=== PATIENT | female | born 1935 | race Caucasian/White ===

== ENCOUNTER 2017-06-10 21:11 | Emergency (ER) | payer OTHER ==
[2017-06-10 21:26] VITALS: TEMP 97.7
--- NOTE | 2017-06-10 22:04 | EDPHY ---
H & P Stated Complaint: fall x 3 after ETOH this evening Time Seen by Provider: 06/10/17 21:35 HPI/ROS: CHIEF COMPLAINT: Multiple falls HISTORY OF PRESENT ILLNESS: The patient is a 81 y/o female with a history of hypertension arriving via EMS complaining of falling several times tonight. She states that she drank a glass of wine at dinner and then drank some vodka when she returned to her room; however she does this most nights. The second time she fell, she called for help as she was unable to stand up. She is unsure why she fell today, but believes it could be because she was rushing to the bathroom; she normally has some urinary incontinence. After three falls, her detention called EMS. She uses a walker when not in her room. Denies injuring herself recently. Denies injuring herself with the falls. REVIEW OF SYSTEMS: A 10 point review of systems was performed and is negative with the exception of the elements mentioned in the history of present illness. Past medical history: 1. Hypertension 2. Anxiety 3. GERD Past surgical history: 1. Total hysterectomy Family history: Denies Social history: Lives at [facility], retired, nonsmoker, drinks alcohol daily. . General Appearance: Alert, no acute distress. BP 150/81. Head: Normocephalic, atraumatic. Eyes: Pupils equal and round, no conjunctival injection, no discharge. ENT, Mouth: Mucous membranes are moist, no oropharyngeal erythema or edema. Neck: No lymphadenopathy, supple. Respiratory: Lungs are clear to auscultation; no wheezes, rales, or rhonchi. Cardiovascular: Regular rate and rhythm; no murmur, rub, or gallop. Gastrointestinal: Abdomen is soft and non tender, no masses or organomegaly, bowel sounds normal. Skin: Warm and dry, no rashes, normal color. Back: Nontender to palpation over the thoracolumbar spine. Extremities: Mild bilateral abrasions on knees. FAROM both knees. No lower extremity edema, no calf tenderness or swelling. Neurological: Alert and oriented. Moving all four extremities easily and equally. Cranial nerves II through XII are examined and are intact (visual acuity not tested). Strength is 5 over 5 bilaterally with testing of all major motor groups. Sensation is intact to light touch over all 4 extremities. Deep tendon reflexes are 2+ in the biceps and knees bilaterally. Walks with one assist in ED. [id number] is performed accurately. No cerebellar ataxia. Psychiatric: Normal affect. - Personal History Current Tetanus/Diphtheria Vaccine: Yes Current Tetanus Diphtheria and Acellular Pertussis (TDAP): Yes - Medical/Surgical History Hx Asthma: No Hx Chronic Respiratory Disease: No Hx Diabetes: No Hx Cardiac Disease: No Hx Renal Disease: No Hx Cirrhosis: No Hx Alcoholism: No Hx HIV/AIDS: No Hx Splenectomy or Spleen Trauma: No Other PMH: HTN/ total hysterectomy - Social History Smoking Status: Never smoked Constitutional: Initial Vital Signs Temperature (C) 36.5 C 06/10/17 21:22 Heart Rate 75 06/10/17 21:22 Respiratory Rate 18 06/10/17 21:22 Blood Pressure 150/81 H 06/10/17 21:22 O2 Sat (%) 95 06/10/17 21:22 O2 Delivery Mode Room Air Allergies/Adverse Reactions: zolpidem tartrate [From Ambien] Allergy (Verified 06/29/15 15:04) Home Medications: Medication Instructions Recorded Aspirin [Aspirin 81mg (*)] 81 mg PO DAILY 06/29/15 Diltiazem Cd [Cardizem ER Q24hr] 180 mg PO DAILY 06/29/15 LORazepam [Ativan (*)] 0.5 mg PO DAILY@0200 PRN 06/29/15 LORazepam [Ativan (*)] 0.5 mg PO HS 06/29/15 Lisinopril [Zestril 10 mg (*)] 10 mg PO DAILY 06/29/15 Multivitamins [Multivitamin (*)] 1 each PO DAILY 06/29/15 Ranitidine HCl [Zantac] 300 mg PO DAILY@18 06/29/15 Azithromycin [Zithromax] 250 mg PO ONCE 03/10/16 Herbals/Supplements -Info Only 1 ea PO DAILY 03/10/16 Mirtazapine [Remeron soltab 15 mg 7.5 mg PO HS 03/10/16 (*)] methylPREDNISolone [Medrol 4mg (*)] 4 mg PO ONCE 03/10/16 methylPREDNISolone [Medrol 4mg (*)] 8 mg PO ONCE 03/10/16 Phenylephrine/Shk Lv/Mo/Pet,Wh 1 dose RC BID #0 tube 03/11/16 [Hemorrhoidal Ointment] Medical Decision Making ED Course/Re-evaluation: The patient is a 81 y/o female with a history of hypertension arriving via EMS, after falling three times tonight.She did drink a glass of wine and vodka tonight; although this is not unusual. Her neuro exam is normal. She did not strike her head, is not on anticoagulation, and I do not think that brain imaging is needed to assess for acute injury.. The only evidence of injury is knee abrasions. I do not suspect CVA, TIA. 2245: Patient's blood alcohol level is 319. I think that she fell because of intoxication and her baseline gait difficulty. I recommend that she use her walker at all times. We had a lengthy discussion about her drinking, which she plans to continue. Patient will be discharged home. 2247: Reassessed patient and discussed laboratory findings. Return precautions provided; patient is comfortable with this plan. - Data Points Laboratory Results: Laboratory Results 06/10/17 22:00 06/10/17 22:00 Departure - Departure Disposition: Home, Routine, Self-Care Clinical Impression: Multiple falls Alcoholic intoxication Qualifiers: Complication of substance-induced condition: uncomplicated Qualified Code(s): F10.920 - Alcohol use, unspecified with intoxication, uncomplicated Condition: Good Instructions: Fall Prevention for Older Adults (ED), Alcohol Intoxication (ED) Additional Instructions: Return to the emergency department immediately for vomiting, confusion, headache , or any concerning symptoms. Referrals: Gill Campbell MD [Primary Care Provider] - As per Instructions Report Scribed for: Carisa Sandoval Report Scribed by: Cassie Fonseca Date of Report: 06/10/17 Time of Report: 22:02 Physician Review and Approval Statement: 06/10/17 22:02 Portions of this note were transcribed by the lead medical technologist. I, Dr. Carisa Sandoval, personally performed the history, physical exam, and medical decision- making; and confirmed the accuracy of the information in the transcribed note.
[2017-06-10 22:16] LABS: PLATELET COUNT 220 10^3/uL (150-400)
[2017-06-11 00:05] VITALS: BP 184/86; PULSE 74; RESP 16; O2SAT 93
== END 2017-06-11 00:33 | disposition home or self-care (01) ==
LOC: EDUNIT#
DX: F10.920 Alcohol use, unspecified with intoxication, uncomplicated (principal); R26.9 Unspecified abnormalities of gait and mobility; I10 Essential (primary) hypertension; Z79.82 Long term (current) use of aspirin
CPT/HCPCS: G0480

== ENCOUNTER 2017-09-17 07:17 | Emergency (ER) | payer OTHER ==
--- NOTE | 2017-09-17 08:00 | EDPHY ---
H & P Time Seen by Provider: 09/17/17 07:20 HPI/ROS: Chief complaint. Scalp laceration HPI. 9-year-old female here by EMS after sustaining laceration to her scalp this morning. She was cold in her apartment and got up to turn up the thermostat. Somehow she grabbed a heavy breast lamp which fell over and struck her in the head. She did not lose consciousness. She is not on blood thinners. She has no neck pain, other back pain, chest pain, abdominal pain, injury to arms legs. she did sustain scalp laceration. No headache ROS Constitutional. no fever/chills, no weakness Eyes. no problems with vision ENT. no sore throat, no nasal drainage Cardiovascular. no chest pain Respiratory. no shortness of breath, no cough Abdominal. no abdominal pain, no nausea/vomiting, no diarrhea . no problems urinating MS. no calf pain/swelling, no neck/back pain, no joint pain Skin. Scalp laceration Lymph. no swollen glands Neuro. no headache, no dizziness, no difficulty walking or with speech Past Medical/Surgical History: Hypertension, GERD, hysterectomy Social History: , nonsmoker, no alcohol Smoking Status: Never smoked Physical Exam: General Appearance: Alert pleasant female mild distress vital signs stable Eyes: Pupils equal and round no pallor or injection. ENT, Mouth: Mucous membranes are moist. Respiratory: There are no retractions, lungs are clear to auscultation. Cardiovascular: Regular rate and rhythm. Gastrointestinal: Abdomen is soft and nontender, no masses, bowel sounds normal. Neurological: Awake and alert, sensory and motor exams grossly normal. Skin: 2 cm laceration to the occipital scalp Musculoskeletal: Neck is supple nontender. Extremities symmetrical, full range of motion. Psychiatric: Patient is oriented X 3, there is no agitation. Constitutional: Initial Vital Signs Temperature (C) 36.4 C 09/17/17 07:21 Heart Rate 65 09/17/17 07:21 Respiratory Rate 18 09/17/17 07:21 Blood Pressure 149/76 H 09/17/17 07:21 O2 Sat (%) 91 L 09/17/17 07:21 O2 Delivery Mode Room Air Allergies/Adverse Reactions: zolpidem tartrate [From Ambien] Allergy (Verified 06/29/15 15:04) Home Medications: Medication Instructions Recorded Aspirin [Aspirin 81mg (*)] 81 mg PO DAILY 06/29/15 Diltiazem Cd [Cardizem ER Q24hr] 180 mg PO DAILY 06/29/15 LORazepam [Ativan (*)] 0.5 mg PO DAILY@0200 PRN 06/29/15 LORazepam [Ativan (*)] 0.5 mg PO HS 06/29/15 Lisinopril [Zestril 10 mg (*)] 10 mg PO DAILY 06/29/15 Multivitamins [Multivitamin (*)] 1 each PO DAILY 06/29/15 Ranitidine HCl [Zantac] 300 mg PO DAILY@18 06/29/15 Azithromycin [Zithromax] 250 mg PO ONCE 03/10/16 Herbals/Supplements -Info Only 1 ea PO DAILY 03/10/16 Mirtazapine [Remeron soltab 15 mg 7.5 mg PO HS 03/10/16 (*)] methylPREDNISolone [Medrol 4mg (*)] 4 mg PO ONCE 03/10/16 methylPREDNISolone [Medrol 4mg (*)] 8 mg PO ONCE 03/10/16 Phenylephrine/Shk Lv/Mo/Pet,Wh 1 dose RC BID #0 tube 03/11/16 [Hemorrhoidal Ointment] Medical Decision Making Procedures: Procedure: Laceration repair. Verbal consent was obtained from the patient. The 2 cm laceration on the scalp was anesthetized in the usual fashion. The wound was irrigated, draped and explored to its base with a gloved finger. There were no deep structures involved. No tendon injury was identified. The wound was repaired with three 5 -0 sutures. The wound repair was simple. The procedure was performed by myself. ED Course/Re-evaluation: On serial evaluations patient remains alert. She is neurologically intact. The patient and I discussed treatment plan including criteria for return and importance of follow-up and further evaluation. She expresses understanding and agreement Differential Diagnosis: I considered retained foreign body, skull fracture, intracranial bleeding Departure - Departure Disposition: Home, Routine, Self-Care Clinical Impression: Occipital scalp laceration Qualifiers: Encounter type: initial encounter Qualified Code(s): S01.01XA - Laceration without foreign body of scalp, initial encounter Condition: Good Instructions: Care For Your Stitches (ED) Additional Instructions: Ice to sore area of head today. May use Tylenol for headache. You may wash your hair with your stitches in. Return for signs of infection. Stitches out 1 week Referrals: Gill Campbell MD [Primary Care Provider] - As per Instructions
[2017-09-17 09:20] VITALS: BP 126/73
== END 2017-09-17 09:18 | disposition home or self-care (01) ==
LOC: EDUNIT#
PROC: 0HQ0XZZ Repair Scalp Skin, External Approach (ICD-10-PCS; principal; 2017-09-17)
DX: S01.01XA Laceration without foreign body of scalp, initial encounter (principal); I10 Essential (primary) hypertension; Z79.82 Long term (current) use of aspirin; W01.198A Fall on same level from slipping, tripping and stumbling with subsequent striking against other object, initial encounter; Y92.039 Unspecified place in apartment as the place of occurrence of the external cause; Y99.8 Other external cause status; Y93.89 Activity, other specified

== ENCOUNTER 2018-06-23 12:50 | Inpatient (IN) | payer OTHER ==
[2018-06-23] MEDS ORDERED: DILTIAZEM 25 MG/5 ML VIAL IVP ONE ×2 (13:23→13:24)
[2018-06-23] MEDS ORDERED: NS 500 ML IV ONE ×2 (13:26→13:47)
[2018-06-23] MEDS ORDERED: LORazepam 2 MG/ML INJ IVP ONE ×2 (13:26→13:46)
[2018-06-23 13:33] LABS: PLATELET COUNT 259 10^3/uL (150-400)
[2018-06-23] MEDS ORDERED: LORazepam 2 MG/ML INJ ONE (13:47)
--- NOTE | 2018-06-23 15:00 | EDPHY ---
H & P Stated Complaint: FALL LAST NIGHT, ON FLOOR FOR HRS AFTER FALL Time Seen by Provider: 06/23/18 12:58 HPI/ROS: CHIEF COMPLAINT: [ ] HISTORY OF PRESENT ILLNESS: [ ] [No fever, chills, chest pain, shortness of breath, palpitations, vomiting, diarrhea, urinary complaints, headache, lightheadedness. ] REVIEW OF SYSTEMS: A comprehensive 10 system review of systems was reviewed and is otherwise negative aside from elements mentioned in the history of present illness and medical decision making. PAST MEDICAL HISTORY: [ ] SOCIAL HISTORY: [ ] VITAL SIGNS Reviewed by me. GENERAL: Well-developed, well-nourished, [resting comfortably in no respiratory distress]. HEENT: [Atraumatic]. [Eyes: No icterus, no injection.] [Mouth: moist mucous membranes. No erythema or lesions.] [Neck: supple with no adenopathy.] LUNGS: [Clear to auscultation bilaterally, no wheezes, rhonchi or rales.] CARDIAC: [Regular rate and rhythm, no rubs, murmurs or gallops.] ABDOMEN: [Soft, nontender, nondistended, bowel sounds normal.] BACK: [No CVA tenderness.] EXTREMITIES: [No trauma.] [No edema. Range of motion is normal throughout]. NEURO: [Alert and oriented, grossly nonfocal]. SKIN: [Warm and dry, no rash]. PSYCHIATRIC: [Normal mentation, no agitation.] - Personal History Current Tetanus Diphtheria and Acellular Pertussis (TDAP): Yes - Medical/Surgical History Hx Asthma: No Hx Chronic Respiratory Disease: No Hx Diabetes: No Hx Cardiac Disease: No Hx Renal Disease: No Hx Cirrhosis: No Hx Alcoholism: No Hx HIV/AIDS: No Hx Splenectomy or Spleen Trauma: No Other PMH: ETOH, GERD, HTN/ total hysterectomy - Social History Smoking Status: Never smoked Constitutional: Initial Vital Signs Temperature (C) 36.9 C 06/23/18 12:57 Heart Rate 118 H 06/23/18 12:57 Respiratory Rate 20 06/23/18 12:57 Blood Pressure 235/161 H 06/23/18 12:57 O2 Sat (%) 90 L 06/23/18 12:57 O2 Delivery Mode Room Air Allergies/Adverse Reactions: zolpidem tartrate [From Ambien] Allergy (Verified 06/23/18 12:57) Home Medications: Medication Instructions Recorded Aspirin [Aspirin 81mg (*)] 81 mg PO DAILY 06/29/15 Diltiazem Cd [Cardizem ER Q24hr] 180 mg PO DAILY 06/29/15 LORazepam [Ativan (*)] 0.5 mg PO DAILY@0200 PRN 06/29/15 LORazepam [Ativan (*)] 0.5 mg PO HS 06/29/15 Lisinopril [Zestril 10 mg (*)] 10 mg PO DAILY 06/29/15 Multivitamins [Multivitamin (*)] 1 each PO DAILY 06/29/15 Ranitidine HCl [Zantac] 300 mg PO DAILY@18 06/29/15 Azithromycin [Zithromax] 250 mg PO ONCE 03/10/16 Herbals/Supplements -Info Only 1 ea PO DAILY 03/10/16 Mirtazapine [Remeron soltab 15 mg 7.5 mg PO HS 03/10/16 (*)] methylPREDNISolone [Medrol 4mg (*)] 4 mg PO ONCE 03/10/16 methylPREDNISolone [Medrol 4mg (*)] 8 mg PO ONCE 03/10/16 Phenyleph/Shark Eri.oil/Mo/Pet 1 dose RC BID #0 tube 03/11/16 [Hemorrhoidal Ointment] Medical Decision Making - Diagnostics Imaging Results: Imaging Impressions Cervical Spine CT 06/23/18 13:26 Impression: 1. Extensive multilevel cervical degenerative disk disease, without acute fracture identified. Results called to Dr. Jossy Cueva at 2:[address] 06/23/18 13:26 Impression: Negative noncontrast CT of the brain. Results called to Dr. Jossy Cueva at 2:50 PM at the time of the interpretation. - Data Points Laboratory Results: Laboratory Results 06/23/18 13:13 06/23/18 13:13 06/23/18 06/23/18 06/23/18 13:18 13:13 13:13 WBC RBC Hgb Hct MCV MCH MCHC RDW Plt Count MPV Neut % (Auto) Lymph % (Auto) [place] % (Auto) Eos % (Auto) Baso % (Auto) Nucleat RBC Rel Count Absolute Neuts (auto) Absolute Lymphs (auto) Absolute Monos (auto) Absolute Eos (auto) Absolute Basos (auto) Absolute Nucleated RBC Immature Gran % Immature Gran # Platelet Estimate Sodium 144 mEq/L mEq/L (135-145) Potassium 4.0 mEq/L mEq/L (3.5-5.2) Chloride 107 mEq/L mEq/L (97-110) Carbon Dioxide 15 mEq/l L mEq/l (22-31) Anion Gap 22 mEq/L H mEq/L (6-14) BUN 12 mg/dL mg/dL (7-23) Creatinine 0.6 mg/dL mg/dL (0.6-1.0) Estimated GFR > 60 Glucose 165 mg/dL H mg/dL (70-100) Calcium 9.2 mg/dL mg/dL (8.5-10.4) POC Troponin I 0.03 ng/mL ng/mL (0.00-0.08) Troponin I 0.039 ng/mL H ng/mL (0.000-0.034) Ethyl Alcohol 61 mg/dL H mg/dL (0-10) 06/23/18 13:13 WBC 9.76 10^3/uL H 10^3/uL (3.80-9.50) RBC 4.37 10^6/uL 10^6/uL (4.18-5.33) Hgb 16.0 g/dL g/dL (12.6-16.3) Hct 47.5 % H % (38.0-47.0) MCV 108.7 fL H fL (81.5-99.8) MCH 36.6 pg H pg (27.9-34.1) MCHC 33.7 g/dL g/dL (32.4-36.7) RDW 14.4 % % (11.5-15.2) Plt Count 259 10^3/uL 10^3/uL (150-400) MPV 9.1 fL fL (8.7-11.7) Neut % (Auto) 88.6 % H % (39.3-74.2) Lymph % (Auto) 5.8 % L % (15.0-45.0) [place] % (Auto) 4.8 % % (4.5-13.0) Eos % (Auto) 0.0 % L % (0.6-7.6) Baso % (Auto) 0.6 % % (0.3-1.7) Nucleat RBC Rel Count 0.0 % % (0.0-0.2) Absolute Neuts (auto) 8.64 10^3/uL H 10^3/uL (1.70-6.50) Absolute Lymphs (auto) 0.57 10^3/uL L 10^3/uL (1.00-3.00) Absolute Monos (auto) 0.47 10^3/uL 10^3/uL (0.30-0.80) Absolute Eos (auto) 0.00 10^3/uL L 10^3/uL (0.03-0.40) Absolute Basos (auto) 0.06 10^3/uL 10^3/uL (0.02-0.10) Absolute Nucleated RBC 0.00 10^3/uL 10^3/uL (0-0.01) Immature Gran % 0.2 % % (0.0-1.1) Immature Gran # 0.02 10^3/uL 10^3/uL (0.00-0.10) Platelet Estimate Not Reported Sodium Potassium Chloride Carbon Dioxide Anion Gap BUN Creatinine Estimated GFR Glucose Calcium POC Troponin I Troponin I Ethyl Alcohol Medications Given: Hydralazine HCl (Apresoline) 10 mg IVP Q6 PRN PRN Reason: SBP>160 Stop: 12/20/18 15:52 Last Admin: 06/23/18 17:08 Dose: 10 mg Lorazepam (Ativan Injection) 0 mg IVP Q1H PRN; Protocol PRN Reason: Alcohol Withdrawal w/IV access Stop: 12/20/18 15:50 Last Admin: 06/23/18 16:31 Dose: 2 mg Discontinued Medications Diltiazem HCl (Cardizem 25 Mg/5 Ml Vial) 10 mg IVP EDNOW ONE Stop: 06/23/18 13:24 Last Admin: 06/23/18 13:26 Dose: 10 mg Sodium Chloride (Ns) 500 mls @ 1,000 mls/hr IV EDNOW ONE PRN Reason: Protocol Stop: 06/23/18 13:55 Last Admin: 06/23/18 13:32 Dose: 500 mls Sodium Chloride (Ns) 500 mls @ 1,000 mls/hr IV EDNOW ONE PRN Reason: Protocol Stop: 06/23/18 14:16 Last Admin: 06/23/18 14:38 Dose: 500 mls Lorazepam (Ativan Injection) 1 mg IVP EDNOW ONE Stop: 06/23/18 13:27 Last Admin: 06/23/18 13:32 Dose: 1 mg Lorazepam (Ativan Injection) 1 mg IVP EDNOW ONE Stop: 06/23/18 13:47 Last Admin: 06/23/18 13:51 Dose: 1 mg Point of Care Test Results: Chemistry 06/23/18 13:18 POC Troponin I 0.03 ng/mL ng/mL (0.00-0.08) Departure - Departure Disposition: [facility] Acute Condition: Fair
[2018-06-23] MEDS ORDERED: FLUMAZENIL 0.5 MG/5 ML MDV IVP PRN (15:51)
--- NOTE | 2018-06-23 15:58 | CPEKG ---
Test Reason : OPEN Blood Pressure : / mmHG Vent. Rate : 108 BPM Atrial Rate : 109 BPM P-R Int : 137 ms QRS Dur : 091 ms QT Int : 352 ms P-R-T Axes : 048 023 040 degrees QTc Int : 472 ms Sinus tachycardia Probable left atrial enlargement Borderline ST depression, lateral leads Confirmed by Jossy Cueva ([id number]) on 06/23/2018 3:58:29 PM Referred By: Confirmed By:Jossy Cueva
--- NOTE | 2018-06-23 15:59 | CPEKG ---
Test Reason : OPEN Blood Pressure : / mmHG Vent. Rate : 089 BPM Atrial Rate : 090 BPM P-R Int : 151 ms QRS Dur : 089 ms QT Int : 411 ms P-R-T Axes : 053 015 029 degrees QTc Int : 501 ms Sinus rhythm Probable left atrial enlargement Prolonged QT interval Confirmed by Jossy Cueva ([id number]) on 06/23/2018 3:58:40 PM Referred By: Confirmed By:Jossy Cueva
[2018-06-23] MEDS: LORazepam 2 MG/ML INJ IVP PRN ×2 (16:31→22:24)
--- NOTE | 2018-06-23 16:56 | GHP ---
DATE OF ADMISSION: 06/23/2018 CHIEF COMPLAINT: Status post fall. HISTORY: The patient is an 82-year-old female, who reportedly fell last night and was on the floor a ll night long into this morning. She now presents to the hospital confused and a poor historian. Sh syliva states she got up in the middle of the night to go to the bathroom. She was half asleep. She used her walker there was something slippery on the floor. She told the nurse that her caregiver forgot to put on the night light before she left. She denies any dizziness or syncope. She is, however, qu ite confused and disoriented so unreliable historian. She cannot tell me the date. She knows she is in some type of medical facility but keeps asking very strange questions about how she is going to g et up stairs, telling me repeatedly that she cannot crawl up stairs and then asked for a motorized ve hicle. On presentation to the emergency room. Her blood pressure is 235/116 and she is extremely tremulous. She tells us she had 1 glass of wine last night, but her alcohol level at 1 o'clock this afternoon was still 61. She is very tremulous and clinically appears to be in probable alcohol withdrawal. PAST MEDICAL HISTORY: 1. Hypertension. 2. GERD. 3. Upper GI bleed secondary to erosions. PAST SURGICAL HISTORY: Hysterectomy. MEDICATIONS: Please see computer record for full details. ALLERGIES: Zolpidem. SOCIAL HISTORY: No smoking. She consistently admits to only 1 glass of wine per day. Reviewing her old medical chart, that is what she had said on those admissions as well. She does tell me she will drink vodka on the [employer] for special occasions. She lives independently at the and tells me "I have a girl." It is not to what degree this person lives with her or is a paid caregiver. REVIEW OF SYSTEMS: Complete review of systems obtained and review of systems negative regarding cons titutional, HEENT, GI, pulmonary, cardiovascular, , hematology, skin, endocrine, psych, except for positives as in HPI. FAMILY HISTORY: Reviewed, noncontributory to presenting complaint physical. EXAMINATION: GENERAL: Well developed, well nourished female, in no acute distress. VITAL SIGNS: T emperature is 36.9, pulse 118, blood pressure 235/161, saturating 93% on room air. EYES: Normal con junctivae. Pupils react light. ENT: Normal ears, nose. Hearing intact. Normal teeth. Oropharynx dry. NECK: Trachea midline. No thyromegaly. CHEST: Normal respiratory effort. Lungs are clear to auscultation bilaterally. CARDIOVASCULAR: Tachycardic. No murmur. No lower extremity edema. A BDOMEN: Soft, nontender. No hepatosplenomegaly. SKIN: Warm, dry, intact without rash. MUSCULOSKE LETAL: She has a significant tremor. She is mildly agitated. She is confused. She is moving all e xtremities equally. Strength 5/5 bilaterally. No cyanosis or clubbing. NEURO: Cranial nerves inta ct. Normal sensation to light touch. PSYCH ASSESSMENT: She is alert, oriented x1. She has poor sherri gment and insight. Poor memory. Mildly agitated, confused, although she is pleasant and cooperative . LABORATORY/DIAGNOSTIC DATA: White count 9.76, hematocrit 47.5, platelets 259, sodium 144, potassium 4.0, chloride 107, bicarb 15, BUN 12, creatinine 0.6, glucose 165, troponin is 0.038. Alcohol level was 61 at 1 p.m. EKG viewed by me and my personal interpretation is normal sinus rhythm with prolong ed QT. Head CT is negative. 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 ASSESSMENT/PLAN: 1. Toxic metabolic encephalopathy. She is very confused at this time. I suspect this is either due to alcohol intoxication versus alcohol withdrawal. 2. Alcohol withdrawal. She reports only 1 glass of wine per night, although alcohol level is 61 at 1 o'clock the next day, showing significant heavier alcohol use than she is admitting to. We will pr escribe IV Ativan per [facility]WA protocol and IV thiamine. 3. Hypertensive urgency. Blood pressure 235/161 on presentation. This is probably due to a combina tion of alcohol withdrawal and missed antihypertensive medications. We will reconcile her oral medic ations when available. We will provide IV hydralazine and IV metoprolol for blood pressure control i n the short term. 4. Borderline troponin. I doubt has had an ischemic event and this is likely due to her prolonged d own time and hypoperfusion. We will follow troponins serially. COR STATUS: Full as she does not currently have decisional capacity to decide anything otherwise at this time. ADMISSION STATUS: We will admit to inpatient as she is quite sick on presentation very toxic appeari ng, I think it is highly unlikely she would be able to return, that she will stabilize by tomorrow. DVT PROPHYLAXIS: She is high risk. We placed her on subcu Lovenox. /[id number]/MODL
[2018-06-23] MEDS: hydrALAZINE 20 MG/ML VIAL IVP PRN (17:08)
[2018-06-24 05:11] LABS: PLATELET COUNT 162 10^3/uL (150-400)
[2018-06-24 05:14] LABS: INR 1.13 (0.83-1.16); PROTIME(PATIENT) 14.7 SEC (12.0-15.0)
[2018-06-24 05:21] LABS: CREATINE KINASE 1390 IU/L (0-156)
--- NOTE | 2018-06-24 09:39 | PDMN ---
Medical Necessity Medical necessity: Pt meets IP criteria as of 06/23/18 per and [facility] M-595 ( substance-related disorders); est los > 2 mn for ongoing tx and management of alcohol withdrawal in an elderly pt with hypertension, tachycardia, and toxic metabolic encephalopathy.
[2018-06-24] MEDS: ENOXAPARIN 40 MG/0.4 ML SYR SC SCH (11:50)
--- NOTE | 2018-06-24 11:51 | ASMTCASEMG ---
Living Arrangements What is your living Answers: Alone arrangement? Who do you live with? Type Of Residence What kind of residence do Answers: Apartment you live in? Discharge Plan Comments Coordination Status Comments Notes: Patient is an 82yo female who fell and was on the floor all night long until this morning. Patient has been admitted for toxic metabolic encephalopathy, ETOH withdrawal, hypertensive urgency, and borderline troponin. OT/PT evals have been ordered. D/C plan TBD. Patient has a daughter in [place], Ciera Cohen who is her MDPOA. CM will follow. Date Signed: 06/24/2018 11:50 AM Electronically Signed By:Carlyn Cunningham LCSW
[2018-06-24] MEDS ORDERED: PNEUMOC 13-VAL CONJ-DIP CRM/PF 0.5 ML SYR (PREVNAR 13) IM ONE (12:21)
[2018-06-24] MEDS ORDERED: DILTIAZEM CD 180 MG CAP PO SCH ×2 (12:30→17:11)
--- NOTE | 2018-06-24 12:51 | HOSPPROG ---
Hospitalist Progress Note Assessment/Plan: 1. Toxic Metabolic Encephalopathy - Was confused at time of admission - Likely in setting of Alcohol intoxication, ETOH level 61 on admisison - Improved this morning back to baseline 2. Mechanical Fall - Fell last night, no night light per patient, ETOH also playing role - PT/OT ordered - Head/Neck CT on admission without acute abnormalities 3. Elevated Troponin - Trop increased overnight 0.039, 0.072, 0.071 this AM - Likely in setting of prolonged down time - Patient denies any chest pain/tightness at this time - Will order TTE to further evaluate, if WMA will proceed with Lexiscan to further evaluate - Continue daily ASA 4. Alcohol Withdrawal - Reports 1 glass of wine/night, ETOH 61 at 1PM, likely heaver use then admitting to - CIWA ordered with IV Thiamine - Will switch to Wine per patient, no interest in stopping alcohol use 5. HTN - Continue home Lisinopril FEN: IVF, Regular DVT PPx: Dispo: Pending clinical course, awaiting PT/OT evaluation, cardiac w/u Objective: Vital Signs Temp Pulse Resp BP Pulse Ox 37.0 C 102 H 18 152/85 H 94 06/24/18 12:00 06/24/18 12:00 06/24/18 12:00 06/24/18 12:00 06/24/18 12:00 Laboratory Results 06/24/18 04:50 06/24/18 04:50 06/23/18 06/24/18 06/25/18 05:59 05:59 05:59 Intake Total 1100 Output Total 450 Balance 650 PT 14.7 SEC (12.0-15.0) 06/24/18 04:50 INR 1.13 (0.83-1.16) 06/24/18 04:50 ICD10 Worksheet Patient Problems: Problems Problem Status Onset Alcoholic intoxication Acute Low hemoglobin and low hematocrit Acute Multiple falls Acute Rectal bleeding Acute
--- NOTE | 2018-06-24 13:02 | ECHO ---
[email or web address] [address] [address] Main: [phone] Fax: Transthoracic Echocardiogram Name: MIRELA FRASER MR#: [id number] Study Date: 06/24/2018 Study Time: 10:11 AM Date of : 1935 Age: 82 year(s) Height: 152.4 cm (60 in.) Weight: 66.68 kg (147 lb.) BSA: 1.64 m2 Gender: Female Examination: Echo Indication: Elevated troponin Image Quality: Adequate Contrast: Requested by: Bubba Messer BP: 152 mmHg/88 mmHg Heart Rate: Rhythm: Indication: Elevated troponin Procedure Staff Tank Processor: Alessia Ham RDCS Reading Physician: Black Valadez MD Requesting Provider: Conclusions: Normal size left ventricle. Normal global systolic LV function. EF is 65 %. No regional wall motion abnormality. Mild mitral annular calcification. Mild mitral valve regurgitation is present. Aortic sclerosis is present. Mild tricuspid regurgitation is present. The pulmonary artery pressure is normal. Measurements: Chambers Valvular Assessment AV/MV Valvular Assessment TV/PV Normal Normal Normal Name Value Range Name Value Range Name Value Range Ao Katie (2D): 2.7 cm (1.4 cm-2.6 AV Vmax: 1.62 m/s (1 m/s-1.7 TR Vmax: 2.67 mm/s ( - ) cm) m/s) TR PGmax: 29 mmHg ( - ) IVSd (2D): 1.2 cm (0.6 cm-1.1 AV maxP mmHg ( - ) syst. PAP: 34 mmHg ( - ) cm) AV meanP mmHg ( - ) PV Vmax: 0.98 m/s (0.6 m/s-0.9 LVDd (2D): 3.4 cm (3.9 cm-5.3 ERIK (VTI): 2.0 cm ( - ) m/s) cm) MV E Vmax: 0.83 m/s ( - ) PV PGmax: 4 mmHg ( - ) LVDs (2D): 2.2 cm (2.1 cm-4 MV A Vmax: 1.22 m/s ( - ) cm) MV E/A: 0.68 ( - ) LVPWd (2D): 1.0 cm ( - ) MV PHT: 0.064 s ( - ) LVOTd 1.8 cm 1.8 cm mm MVA (PHT): 3.4 s ( - ) LVEF (BP): 65 % (>=55 %) RVDd(2D): 1.9 cm (1.9 cm-3.8 cmmm) Continued Measurements: Chambers Valvular Assessment AV/MV Valvular Assessment TV/PV Patient: MIRELA FRASER Study Date: 06/24/2018 Page 1 of 2 10:11 AM Name Value Name Value Name Value LADs: 2.8 cm MV DecTime: 239 m/s CVP (est.): 5 mmHg LADs Lon.8 cm MV E' Septal: 0.08 m/s LA Area: 18.4 cm2 MV E/E' Septal: 10.20 LA Volume: 46 ml MV E/E' Lateral: 13.60 LA Volume Index: 28.0 ml/m2 RA Area: 12.5 cm2 Additional Vessels Name Value Ao Ascendin.4 cm Findings: Left Ventricle: Normal size left ventricle. Borderline concentric LV hypertrophy. Normal global systolic LV function. EF is 65 %. No regional wall motion abnormality. Normal diastolic LV function. Right Ventricle: Normal size right ventricle. Normal RV function. Left Atrium: The left atrium is mildly dilated. Right Atrium: The right atrium is normal in size. Mitral Valve: The mitral valve is normal in appearance and function. Mild mitral annular calcification. Mild mitral valve regurgitation is present. No mitral stenosis is present. Aortic Valve: The aortic valve is tri-leaflet. Aortic sclerosis is present. There is no significant aortic valve regurgitation. No aortic valve stenosis is present. Tricuspid Valve: The tricuspid valve is normal in appearance and function. Mild tricuspid regurgitation is present. The pulmonary artery pressure is normal. Right ventricular systolic pressure measures 34mmHg. Pulmonic Valve: Pulmonary valve not well visualized. Aorta: The aorta is normal. Normal size aortic root measuring 2.7 cm. Normal size ascending aorta measuring 3.4 cm. Pericardium: No pericardial effusion. There is pericardial fat. (No Signature Object) Patient: MIRELA FRASER Study Date: 06/24/2018 Page 2 of 2 10:11 AM [id number]
[2018-06-24] MEDS: METOPROLOL TARTRATE 5 MG/5 ML INJ IVP PRN (14:49)
[2018-06-24] MEDS: THIAMINE HCL 500 MG in NS 100 ML IV SCH (17:18)
[2018-06-24] MEDS: FAMOTIDINE 20 MG TAB PO SCH (17:21)
[2018-06-24] MEDS ORDERED: WHITE WINE 120 ML BOTTLE PO SCH (18:00)
[2018-06-24] MEDS: MIRTAZAPINE 15 MG TAB PO SCH (21:04)
[2018-06-24] MEDS ORDERED: oxyCODONE IR 5 MG TAB PO PRN (21:30)
[2018-06-24] MEDS: LORazepam 1 MG TAB PO PRN (21:35)
[2018-06-25] MEDS: hydrALAZINE 20 MG/ML VIAL IVP PRN (03:06)
[2018-06-25] MEDS: ASPIRIN 81 MG CHEWABLE TAB PO SCH (08:39)
[2018-06-25] MEDS: ENOXAPARIN 40 MG/0.4 ML SYR SC SCH (08:39)
[2018-06-25] MEDS: THIAMINE HCL 500 MG in NS 100 ML IV SCH (08:40)
[2018-06-25] MEDS: DILTIAZEM XR 240 MG CAP PO SCH (08:40)
[2018-06-25] MEDS: LISINOPRIL 10 MG TAB PO SCH (08:40)
[2018-06-25] MEDS: METOPROLOL TARTRATE 5 MG/5 ML INJ IVP PRN (10:09)
--- NOTE | 2018-06-25 13:34 | HOSPPROG ---
Hospitalist Progress Note Assessment/Plan: 1. Toxic Metabolic Encephalopathy - Was confused at time of admission - Likely in setting of Alcohol intoxication, ETOH level 61 on admisison - Improved back to baseline 2. Mechanical Fall - No night light per patient, ETOH also playing role - PT/OT ordered- recommending SNF - Head/Neck CT on admission without acute abnormalities 3. Elevated Troponin - Trop increased overnight 0.039, 0.072, 0.071 - Likely in setting of prolonged down time - Patient denies any chest pain/tightness at this time - Prdered TTE to further evaluate, negative for WMA - Will hold off on further cardiac evaluation for now given lack of symptoms - Continue daily ASA 4. Alcohol Withdrawal - Reports 1 glass of wine/night, ETOH 61 at 1PM, likely heaver use then admitting to - CIWA ordered with IV Thiamine 5. HTN - Continue home Lisinopril 6. Paroxysmal A Fib - With HR ranging 90-130's, in setting of alcohol withdrawal - On Diltiazem 180 mg qd at home, increased to 240 mg this AM for better rate control - CHADsVASC >2 given age and sex however given alcohol use and recent fall will hold off on AC for now, continue ASA 81 mg FEN: IVF, Regular DVT PPx: Dispo: Pending clinical course, PT recommending SNF requiring 3 nights, tonight 2nd night Subjective: Patient reports overall weakness Objective: Vital Signs Temp Pulse Resp BP Pulse Ox 36.8 C 73 17 110/71 94 06/25/18 11:15 06/25/18 11:15 06/25/18 11:15 06/25/18 11:15 06/25/18 11:15 Laboratory Results 06/25/18 03:16 06/24/18 04:50 06/24/18 06/25/18 06/26/18 05:59 05:59 05:59 Intake Total 1100 1050 250 Output Total 450 400 Balance 650 650 250 PT 14.7 SEC (12.0-15.0) 06/24/18 04:50 INR 1.13 (0.83-1.16) 06/24/18 04:50 - Physical Exam Constitutional: no apparent distress Eyes: PERRL Ears, Nose, Mouth, Throat: moist mucous membranes Cardiovascular: tachycardia Respiratory: no respiratory distress Gastrointestinal: soft, non-tender abdomen Skin: normal color Musculoskeletal: generalized weakness Neurologic: AAOx3 Psychiatric: interacting appropriately ICD10 Worksheet Patient Problems: Problems Problem Status Onset Alcoholic intoxication Acute Low hemoglobin and low hematocrit Acute Multiple falls Acute Rectal bleeding Acute
--- NOTE | 2018-06-25 15:31 | ASMTCMCOM ---
CM Note CM Note Notes: PT/OT are recommending SNF rehab for the patient. Met with the patient who states she has a stomach ache and cannot participate in a discussion at this time. Met with patient's nurse who states the patient has been confused and unable to process information currently. Contacted patient's MDPOA, Ciera Cohen (daughter) and left her a message to call me back. D/C plan is for SNF rehab if the MDPOA is in agreement and can help with choosing facilities to make referrals to. Awaiting a call from Ciera. CM will follow. Date Signed: 06/25/2018 03:31 PM Electronically Signed By:Carlyn Cunningham LCSW
[2018-06-25] MEDS: FAMOTIDINE 20 MG TAB PO SCH (16:30)
--- NOTE | 2018-06-25 16:43 | ASMTCMCOM ---
CM Note CM Note Notes: Spoke with patient's daughter, Ciera and she is supportive of SNF rehab for her mother. Her concern is , her mother may not want to cooperate if she cannot drink in the program and there is a risk she might try to leave before she has completed the program. Ciera states she has requested tests for cognitive functioning as it is hard to discern if her confusion is from dementia or the drinking.Ciera states her mother's cognitive abilities have declined significantly in the past year. We will make referrals to SNF programs and see what the response is. CM will follow. Date Signed: 06/25/2018 04:42 PM Electronically Signed By:Carlyn Cunningham LCSW
[2018-06-25] MEDS: LORazepam 1 MG TAB PO PRN (21:35)
[2018-06-25] MEDS: MIRTAZAPINE 15 MG TAB PO SCH (21:36)
[2018-06-26 04:45] LABS: CREATINE KINASE 398 IU/L (0-156)
[2018-06-26] MEDS: ENOXAPARIN 40 MG/0.4 ML SYR SC SCH (08:06)
[2018-06-26] MEDS: THIAMINE HCL 500 MG in NS 100 ML IV SCH (08:07)
[2018-06-26] MEDS: DILTIAZEM XR 240 MG CAP PO SCH (08:07)
[2018-06-26] MEDS: LISINOPRIL 10 MG TAB PO SCH (08:07)
[2018-06-26] MEDS: ASPIRIN 81 MG CHEWABLE TAB PO SCH (08:07)
[2018-06-26] MEDS: NS 1,000 ML IV SCH (12:03)
[2018-06-26] MEDS: FAMOTIDINE 20 MG TAB PO SCH (17:24)
[2018-06-26] MEDS: LORazepam 1 MG TAB PO PRN (17:38)
[2018-06-26] MEDS ORDERED: PROTOCOL POTASSIUM 1 DOSE MISC PRN (18:02)
[2018-06-26] MEDS ORDERED: PROTOCOL MAGNESIUM 1 DOSE IV PRN (18:02)
--- NOTE | 2018-06-26 18:06 | HOSPPROG ---
Hospitalist Progress Note Assessment/Plan: 1. Toxic Metabolic Encephalopathy - Was confused at time of admission - Likely in setting of Alcohol intoxication, ETOH level 61 on admisison - Improved back to baseline 2. Mechanical Fall - No night light per patient, ETOH also playing role - PT/OT ordered- recommending SNF - Head/Neck CT on admission without acute abnormalities 3. Elevated Troponin - Trop increased overnight 0.039, 0.072, 0.071 - Likely in setting of prolonged down time - Patient denies any chest pain/tightness at this time - TTE to further evaluate, negative for WMA - Will hold off on further cardiac evaluation for now given lack of symptoms - Continue daily ASA 4. Alcohol Withdrawal - Reports 1 glass of wine/night, ETOH 61 at 1PM, likely heaver use then admitting to - CIWA ordered with IV Thiamine -WILL give daily wine 5. HTN - Continue home Lisinopril 6. Paroxysmal A Fib - With HR ranging 90-130's, in setting of alcohol withdrawal - On Diltiazem 180 mg qd at home, increased to 240 mg this AM for better rate control - CHADsVASC >2 given age and sex however given alcohol use and recent fall will hold off on AC for now, continue ASA 81 mg 7. Hypokalemia, will replace 8. decreased urine output. Looks clinically euvolemic. Will provide gently IV hydration. monitor overnight. FEN: IVF, Regular DVT PPx: Dispo: Pending clinical course, PT recommending SNF requiring 3 nights, tonight 3rd night Subjective: feels ok. no cp or sob. no n/v Objective: Vital Signs Temp Pulse Resp BP Pulse Ox 36.8 C 72 15 155/74 H 92 06/26/18 16:20 06/26/18 16:20 06/26/18 16:20 06/26/18 16:20 06/26/18 16:20 Laboratory Results 06/26/18 04:15 06/26/18 04:15 06/25/18 06/26/18 06/27/18 05:59 05:59 05:59 Intake Total 1050 1270 225 Output Total 400 310 0 Balance 650 960 225 PT 14.7 SEC (12.0-15.0) 06/24/18 04:50 INR 1.13 (0.83-1.16) 01/21/19 04:50 - Physical Exam Constitutional: no apparent distress Eyes: PERRL Ears, Nose, Mouth, Throat: moist mucous membranes, hearing normal Cardiovascular: regular rate and rhythym, No edema Respiratory: no respiratory distress, no rales or rhonchi, clear to auscultation Gastrointestinal: normoactive bowel sounds Skin: warm Neurologic: AAOx3 Psychiatric: interacting appropriately, not anxious Lymph, Heme, Immunologic: No petechiae ICD10 Worksheet Patient Problems: Problems Problem Status Onset Alcoholic intoxication Acute Low hemoglobin and low hematocrit Acute Multiple falls Acute Rectal bleeding Acute
[2018-06-26] MEDS: WHITE WINE 120 ML BOTTLE PO SCH (18:29)
[2018-06-26] MEDS: MIRTAZAPINE 15 MG TAB PO SCH (20:42)
[2018-06-26] MEDS ORDERED: POTASSIUM CL 20 MEQ/15 ML UDCUP TUBE ONE (20:45)
[2018-06-26] MEDS ORDERED: POTASSIUM CL 20 MEQ PKT PO ONE (20:45)
[2018-06-27] MEDS: NS 1,000 ML IV SCH (04:01)
[2018-06-27 04:52] LABS: PLATELET COUNT 144 10^3/uL (150-400)
[2018-06-27] MEDS: hydrALAZINE 20 MG/ML VIAL IVP PRN ×2 (05:37→12:09)
[2018-06-27] MEDS ORDERED: POTASSIUM CL 10 MEQ TAB PO ONE ×2 (07:52→19:18)
[2018-06-27] MEDS ORDERED: MAGNESIUM SULF 1 GM/DEXTROSE 100 ML IV ONE (07:52)
[2018-06-27] MEDS: THIAMINE HCL 100 MG TAB PO SCH (09:32)
[2018-06-27] MEDS: ASPIRIN 81 MG CHEWABLE TAB PO SCH (09:33)
[2018-06-27] MEDS: LISINOPRIL 10 MG TAB PO SCH (09:33)
[2018-06-27] MEDS: DILTIAZEM XR 240 MG CAP PO SCH (09:33)
[2018-06-27] MEDS: ENOXAPARIN 40 MG/0.4 ML SYR SC SCH (09:33)
--- NOTE | 2018-06-27 14:15 | ASMTCMCOM ---
CM Note CM Note Notes: Spoke with patient's daughter, Ciera this morning and she is in agreement with SNF placement for her mother. Spoke with Blank at [facility] and they need a PASRR on the patient. Completed the PASRR on patient and it triggered so it has been faxed to the OBRA coordinator for review. Ciera states she would like for her mother to get sober but understands she may not choose to stop drinking. Ciera does feel the rehab will be more successful if the patient is allowed to have a small amount of ETOH each day. Dr. Norton has agreed to write medical orders for this for the SNF placement. Ciera gave hx regarding her mother's depression. She was hospitalized 8 years ago for 1 month and has stayed on anti depressant medication since. During the psychiatric hospitalization, the patient was also given the dx of personality disorder, though Ciera could not remember exactly which one. ( she thinks Borderline). Ciera states patient is not talking to her other daughter who is local. Patient gets mad frequently with Ciera but she remains her MDPOA and financial POA. Spoke with patient who is willing to go for SNF rehab currently. She understands I am communicating with her MDPOA and daughter to make the arrangements. D/C plan is currently [facility] for SNF rehab when her PASRR is reviewed. CM will follow. Date Signed: 06/27/2018 02:15 PM Electronically Signed By:Carlyn Cunningham LCSW
--- NOTE | 2018-06-27 14:54 | HOSPPROG ---
Hospitalist Progress Note Assessment/Plan: 1. Toxic Metabolic Encephalopathy - Was confused at time of admission - Likely in setting of Alcohol intoxication, ETOH level 61 on admisison - Improved back to baseline which is some confusion present 2. Mechanical Fall - No night light per patient, ETOH also playing role - PT/OT ordered- recommending SNF - Head/Neck CT on admission without acute abnormalities 3. Elevated Troponin - Trop increased overnight 0.039, 0.072, 0.071 - Likely in setting of prolonged down time - Patient denies any chest pain/tightness at this time - TTE to further evaluate, negative for WMA - Will hold off on further cardiac evaluation for now given lack of symptoms - Continue daily ASA 4. Alcohol Withdrawal - Reports 1 glass of wine/night, ETOH 61 at 1PM, likely heaver use then admitting to - CIWA ordered with Thiamine -WILL give daily wine 5. HTN, elevated - increase Lisinopril today to 20mg daily 6. Paroxysmal A Fib - With HR ranging 90-130's, in setting of alcohol withdrawal - On Diltiazem 180 mg qd at home, increased to 240 mg this AM for better rate control - CHADsVASC >2 given age and sex however given alcohol use and recent fall will hold off on AC for now, continue ASA 81 mg 7. Hypokalemia, will replace 8. decreased urine output: resolved. Stop IVF today and monitor off IVF FEN: IVF, Regular DVT PPx: Dispo: cont inpatient. Will need a SNF Subjective: no cp or sob. no n/v. no wd symptoms. bp is elevated. better uop Objective: Vital Signs Temp Pulse Resp BP Pulse Ox 36.9 C 71 16 173/75 H 94 06/27/18 12:03 06/27/18 12:03 06/27/18 12:03 06/27/18 12:03 06/27/18 12:03 Laboratory Results 06/27/18 04:20 06/27/18 03:55 06/26/18 06/27/18 06/28/18 05:59 05:59 05:59 Intake Total 1270 2375 210 Output Total 310 375 Balance 960 2000 210 PT 14.7 SEC (12.0-15.0) 06/24/18 04:50 INR 1.13 (0.83-1.16) 06/24/18 04:50 - Physical Exam Constitutional: no apparent distress Eyes: PERRL, EOMI Ears, Nose, Mouth, Throat: moist mucous membranes, hearing normal Cardiovascular: regular rate and rhythym, No edema Respiratory: no respiratory distress, no rales or rhonchi Gastrointestinal: normoactive bowel sounds, soft, non-tender abdomen Skin: warm Musculoskeletal: generalized weakness Psychiatric: interacting appropriately, not anxious Lymph, Heme, Immunologic: No petechiae ICD10 Worksheet Patient Problems: Problems Problem Status Onset Alcoholic intoxication Acute Low hemoglobin and low hematocrit Acute Multiple falls Acute Rectal bleeding Acute
[2018-06-27] MEDS ORDERED: LISINOPRIL 20 MG TAB PO ONE (15:00)
[2018-06-27] MEDS: FAMOTIDINE 20 MG TAB PO SCH (18:11)
[2018-06-27] MEDS: WHITE WINE 120 ML BOTTLE PO SCH (18:12)
[2018-06-27] MEDS: MIRTAZAPINE 15 MG TAB PO SCH (20:15)
[2018-06-27] MEDS: LORazepam 1 MG TAB PO PRN (20:16)
[2018-06-28] MEDS ORDERED: POTASSIUM CL 10 MEQ TAB PO ONE (07:25)
[2018-06-28] MEDS ORDERED: MAGNESIUM SULF 1 GM/DEXTROSE 100 ML IV ONE (07:26)
[2018-06-28] MEDS: ASPIRIN 81 MG CHEWABLE TAB PO SCH (09:20)
[2018-06-28] MEDS: LISINOPRIL 10 MG TAB PO SCH (09:21)
[2018-06-28] MEDS: THIAMINE HCL 100 MG TAB PO SCH (09:23)
[2018-06-28] MEDS: DILTIAZEM XR 240 MG CAP PO SCH (09:24)
[2018-06-28] MEDS: ENOXAPARIN 40 MG/0.4 ML SYR SC SCH (09:26)
[2018-06-28] MEDS: LORazepam 1 MG TAB PO PRN ×2 (09:51→16:54)
--- NOTE | 2018-06-28 15:39 | HOSPPROG ---
Hospitalist Progress Note Assessment/Plan: 1. Toxic Metabolic Encephalopathy, resolved - Was confused at time of admission - Likely in setting of Alcohol intoxication, ETOH level 61 on admisison - Improved back to baseline which is some confusion present 2. Mechanical Fall, generalized weakness - No night light per patient, ETOH also playing role - PT/OT ordered- recommending SNF - Head/Neck CT on admission without acute abnormalities -Pt needs SNF 3. Elevated Troponin - Trop increased overnight 0.039, 0.072, 0.071 - Likely in setting of prolonged down time - Patient denies any chest pain/tightness at this time - TTE to further evaluate, negative for WMA - Will hold off on further cardiac evaluation for now given lack of symptoms - Continue daily ASA 4. Alcohol Withdrawal on chronic ETOH use - Reports 1 glass of wine/night, ETOH 61 at 1PM, likely heaver use then admitting to - CIWA ordered with Thiamine -WILL give daily wine 5. HTN, elevated - increase Lisinopril on 06/27 from 10 to 20mg daily 6. Paroxysmal A Fib - On Diltiazem 180 mg qd at home, increased to 240 mg this AM for better rate control - CHADsVASC >2 given age and sex however given alcohol use and recent fall will hold off on AC for now, continue ASA 81 mg 7. Hypokalemia, replace as needed 8. decreased urine output: resolved. Stop IVF today and monitor off IVF FEN: IVF, Regular DVT PPx: Dispo: cont inpatient. Will need a SNF. awaiting placement Subjective: no cp or sob. no n/v Objective: Vital Signs Temp Pulse Resp BP Pulse Ox 36.2 C 76 14 141/95 H 93 06/28/18 11:34 06/28/18 11:34 06/28/18 11:34 06/28/18 11:34 06/28/18 11:34 Laboratory Results 06/27/18 04:20 06/28/18 04:05 06/27/18 06/28/18 06/29/18 05:59 05:59 05:59 Intake Total 2375 660 500 Output Total 375 600 200 Balance 2000 60 300 PT 14.7 SEC (12.0-15.0) 06/24/18 04:50 INR 1.13 (0.83-1.16) 06/24/18 04:50 - Physical Exam Constitutional: no apparent distress Eyes: PERRL, EOMI Ears, Nose, Mouth, Throat: moist mucous membranes, hearing normal Cardiovascular: regular rate and rhythym, No edema Respiratory: no respiratory distress, no rales or rhonchi Gastrointestinal: normoactive bowel sounds, soft, non-tender abdomen Skin: warm Neurologic: AAOx3 Psychiatric: interacting appropriately, not anxious, not encephalopathic Lymph, Heme, Immunologic: No petechiae ICD10 Worksheet Patient Problems: Problems Problem Status Onset Alcoholic intoxication Acute Low hemoglobin and low hematocrit Acute Multiple falls Acute Rectal bleeding Acute
[2018-06-28 16:14] VITALS: BP 173/94
--- NOTE | 2018-06-28 16:22 | PDIAF ---
- Diagnosis Diagnosis: Weakness, Encephalopathy Code Status: Full Code - Medication Management Discharge Medications: electronically signed and located in the Home Medication List. - Orders Isolation Type: None Diet Recommendation: no restrictions on diet Diet Texture: Regular Texture Diet Additional Instructions: Activity: as tolerated f/u: with PCP in one week Ok to have 120ml of white wine with dinner nightly - Follow Up Care Current Providers and Referrals: NONE *PRIMARY CARE P,. [Primary Care Provider] - As per Instructions
--- NOTE | 2018-06-28 16:24 | PDDCSUM ---
Discharge Summary Discharge Summary: 82 yo female admitted following mechanical fall. Please see below for details per problem list. She is being d/c to SNF She is at baseline from her chronic medical problems DDX: 1. Toxic Metabolic Encephalopathy, resolved - Was confused at time of admission - Likely in setting of Alcohol intoxication, ETOH level 61 on admisison - Improved back to baseline which is some confusion present 2. Mechanical Fall, generalized weakness - No night light per patient, ETOH also playing role - PT/OT ordered- recommending SNF - Head/Neck CT on admission without acute abnormalities -Pt needs SNF 3. Elevated Troponin - Trop increased overnight 0.039, 0.072, 0.071 - Likely in setting of prolonged down time - Patient denies any chest pain/tightness at this time - TTE to further evaluate, negative for WMA - Will hold off on further cardiac evaluation for now given lack of symptoms - Continue daily ASA 4. Alcohol Withdrawal on chronic ETOH use - Reports 1 glass of wine/night, ETOH 61 at 1PM, likely heaver use then admitting to - CIWA ordered with Thiamine -WILL give daily wine 5. HTN, elevated - Lisinopril 6. Paroxysmal A Fib - On Diltiazem 180 mg qd at home, increased to 240 mg this AM for better rate control - CHADsVASC >2 given age and sex however given alcohol use and recent fall will hold off on AC for now, continue ASA 81 mg 7. Hypokalemia, replace as needed Exam: see progress note from today med: see med rec list total time spent on d/c is 35 mins
[2018-06-28] MEDS ORDERED: LISINOPRIL 10 MG TAB PO SCH (16:38)
[2018-06-28] MEDS: FAMOTIDINE 20 MG TAB PO SCH (16:54)
[2018-06-28] MEDS ORDERED: LISINOPRIL 10 MG TAB PO ONE (17:00)
--- NOTE | 2018-06-28 17:17 | ASDISCHSUM ---
Discharge Information Plan Status:SNF Medically Cleared to Leave:06/27/2018 Discharge Date:06/27/2018 CM D/C Disposition:Senior Living Facility ADT D/C Disposition:Senior Living Facility Projected Discharge Date:06/28/2018 11:00 AM Transportation at D/C:Wheelchair Van Discharge Delay Reason: Follow-Up Date:06/28/2018 11:00 AM Discharge Slot:2 - 12:01 pm - 18:00 pm Final Diagnosis:ETOH, toxic metabolic encephalopathy, falls Placement Information Referral Type:*Halfway/SNF Referral ID:[id number] Provider Name:[facility] Address 1:[address] Address 2: City:[place] Selection Factors: State:[place] Patient Contact Information Contact Name:JIMMYMERLIN Relationship:Daughter Address: City:[facility] Alternate Phone: State/Zip Code:[place] Email: Financial Information Financial Class:Medicare Primary Plan Desc:MEDICARE INPATIENT Primary Plan Number:[id number] Secondary Plan Desc:[place] FDC Secondary Plan Number:[id number] Assessment Information LACE LACE Length of stay for Answers: 4-6 days current admission Acuity / Level of Answers: Yes Care: Did the patient have an inpatient admission? Comorbidities - select Answers: Other Notes: GERD; HTN all that apply # of Emergency department Answers: 1-2 visits in the last 6 months Social determinants Answers: History of substance abuse (ETOH, street drugs, prescription drugs, etc.) Mental health diagnosis (anxiety, depression, pers onality disorders, etc.) Score: 15 Date Signed: 06/28/2018 05:14 PM Electronically Signed By:Carlyn Cunningham LCSW [facility] Initial CM Assessment Living Arrangements What is your living Answers: Alone arrangement? Who do you live with? Type Of Residence What kind of residence do Answers: Apartment you live in? Discharge Plan Comments Coordination Status Comments Notes: Patient is an 82yo female who fell and was on the floor all night long until this morning. Patient has been admitted for toxic metabolic encephalopathy, ETOH withdrawal, hypertensive urgency, and borderline troponin. OT/PT evals have been ordered. D/C plan TBD. Patient has a daughter in [place], Ciera Cohen who is her MDPOA. CM will follow. Date Signed: 06/24/2018 11:50 AM Electronically Signed By:Carlyn Cunningham LCSW [facility] CM Progress Note CM Note CM Note Notes: PT/OT are recommending SNF rehab for the patient. Met with the patient who states she has a stomach ache and cannot participate in a discussion at this time. Met with patient's nurse who states the patient has been confused and unable to process information currently. Contacted patient's MDPOA, Ciera Cohen (daughter) and left her a message to call me back. D/C plan is for SNF rehab if the [facility] is in agreement and can help with choosing facilities to make referrals to. Awaiting a call from Ciera. CM will follow. Date Signed: 06/25/2018 03:31 PM Electronically Signed By:Carlyn Cunningham LCSW [facility] CM Progress Note CM Note CM Note Notes: Spoke with patient's daughter, Ciera and she is supportive of SNF rehab for her mother. Her concern is , her mother may not want to cooperate if she cannot drink in the program and there is a risk she might try to leave before she has completed the program. Ciera states she has requested tests for cognitive functioning as it is hard to discern if her confusion is from dementia or the drinking.Ciera states her mother's cognitive abilities have declined significantly in the past year. We will make referrals to SNF programs and see what the response is. CM will follow. Date Signed: 06/25/2018 04:42 PM Electronically Signed By:Carlyn Cunningham LCSW [facility] Progress Note CM Note CM Note Notes: Spoke with patient's daughter, Ciera this morning and she is in agreement with SNF placement for her mother. Spoke with Blank at [facility] and they need a PASRR on the patient. Completed the PASRR on patient and it triggered so it has been faxed to the OBRA coordinator for review. Ciera states she would like for her mother to get sober but understands she may not choose to stop drinking. Ciera does feel the rehab will be more successful if the patient is allowed to have a small amount of ETOH each day. Dr. Norton has agreed to write medical orders for this for the SNF placement. Ciera gave hx regarding her mother's depression. She was hospitalized 8 years ago for 1 month and has stayed on anti depressant medication since. During the psychiatric hospitalization, the patient was also given the dx of personality disorder, though Ciera could not remember exactly which one. ( she thinks Borderline). Ciera states patient is not talking to her other daughter who is local. Patient gets mad frequently with Ciera but she remains her MDPOA and financial POA. Spoke with patient who is willing to go for SNF rehab currently. She understands I am communicating with her MDPOA and daughter to make the arrangements. D/C plan is currently [facility] for SNF rehab when her PASRR is reviewed. CM will follow. Date Signed: 06/27/2018 02:15 PM Electronically Signed By:Carlyn Cunningham LCSW Case Management Discharge Plan Note Case Management Discharge Discharge Order Complete? Answers: Yes Patient to Obtain Answers: Other Notes: [facility] Medications Transportation Arranged Answers: Other Notes: [facility] Transport will Pick (Date 06/28/2018 12:00 AM & Time) Faxed Final Orders Answers: Yes Notes: [facility] Agency/Facility Transfer Answers: Yes Notes: [facility] Report Printed & Faxed to Receiving Agency Family Notified Answers: Yes Notes: Ciera, daughter Discharge Comments Notes: Patient is discharging to [facility] for SNF rehab today. Discharge summaries have been Allscripted to [facility] and [facility] set up transport with [facility] for 5:30PM. [facility]'s number is [phone]. [facility]'s [facility] of [facility] re[facility] and [facility] for the patient. Her information was given to [facility] so they can call her when the patient is settled. Spoke with the patient so she knows she will continue to get a small amount of ETOH daily while she is completing rehab. Patient understands. No further needs. Date Signed: 06/28/2018 05:13 PM Electronically Signed By:Carlyn Cunningham LCSW Intervention Information
--- NOTE | 2018-06-28 20:52 | ASMTDCNOTE ---
Case Management Discharge Discharge Order Complete? Answers: Yes Patient to Obtain Answers: Other Notes: [facility] Medications Transportation Arranged Answers: Other Notes: [email or web address] Transport will Pick (Date 06/28/2018 12:00 AM & Time) Faxed Final Orders Answers: Yes Notes: [facility] Agency/Facility Transfer Answers: Yes Notes: [facility] Report Printed & Faxed to Receiving Agency Family Notified Answers: Yes Notes: Ciera, daughter Discharge Comments Notes: Patient is discharging to [facility] for SNF rehab today. Discharge summaries have been Allscripted to [facility] and [facility] set up transport with [email or web address] for 5:30PM. [facility] number [facility] [phone]. Patient's daughter and MDPOA is supportive of SNF rehab and [facility] for the patient. Her information was given to [facility] so they can call her when the patient is settled. Spoke with the patient so she knows she will continue to get a small amount of ETOH daily while she is completing rehab. Patient understands. No further needs. Date Signed: 06/28/2018 05:13 PM Electronically Signed By:Carlyn Cunningham LCSW
--- NOTE | 2018-06-28 20:53 | ASMTLACE ---
[facility] Length of stay for Answers: 4-6 days current admission Acuity / Level of Answers: Yes Care: Did the patient have an inpatient admission? Comorbidities - select Answers: Other Notes: GERD; HTN all that apply # of Emergency department Answers: 1-2 visits in the last 6 months Social determinants Answers: History of substance abuse (ETOH, street drugs, prescription drugs, etc.) Mental health diagnosis (anxiety, depression, pers onality disorders, etc.) Score: 15 Date Signed: 06/28/2018 05:14 PM Electronically Signed By:Carlyn Cunningham LCSW
[2018-06-29] MEDS ORDERED: LISINOPRIL 10 MG TAB PO ONE (16:48)
== END 2018-06-28 17:25 | DRG 896 ==
LOC: EDUNIT# → F2W 15:56 → OBSVTOIN 16:01
PROVIDERS: ADMIT Internal Medicine; ATTEND Internal Medicine
DX: F10.221 Alcohol dependence with intoxication delirium (principal); G92 Toxic encephalopathy; F10.239 Alcohol dependence with withdrawal, unspecified; E86.9 Volume depletion, unspecified; Y90.3 Blood alcohol level of 60-79 mg/100 ml; W01.0XXA Fall on same level from slipping, tripping and stumbling without subsequent striking against object, initial encounter; Y92.122 Bedroom in nursing home as the place of occurrence of the external cause; I10 Essential (primary) hypertension; I48.0 Paroxysmal atrial fibrillation; E87.6 Hypokalemia; K21.9 Gastro-esophageal reflux disease without esophagitis; Z23 Encounter for immunization
CPT/HCPCS: 84484-ER; 96374; 97116-GP; 97162-GP; 97166-GO; 97530-GP; 97535-GO; G0008; G0009; G0378; G0480; J0360; J1650; J2060; J3411; J3475